=== PATIENT | female | born 1990 ===

== ENCOUNTER → 2018-04-17 11:46 | Outpatient (REF) | payer BC, SELFPAY | LOC: LAB 11:46 | PROVIDERS: Visit Provider Family Medicine | DX: R21 Rash and other nonspecific skin eruption (principal) | CPT/HCPCS: 87077; 87081; 87147; 87186 ==

== ENCOUNTER → 2019-07-09 12:01 | Outpatient (ROUT) | payer BC, SELFPAY | PROVIDERS: Visit Provider Internal Medicine | DX: J02.9 Acute pharyngitis, unspecified (principal) | CPT/HCPCS: 87070; 87147 ==